=== PATIENT | female | born 1985 | race African-American/Black ===

== ENCOUNTER 2017-04-21 15:44 | Emergency (ER) | payer SELFPAY ==
[~2017-04-21] VITALS: Ht 162.6 cm; Wt 72.6 kg
[2017-04-21 16:01] VITALS: BP 112/67
[2017-04-21 18:47] LABS: Urine Bilirubin Negative (Negative); Urine Blood Negative /uL (Negative); Urine Color Yellow (Yellow); Urine Glucose Normal (Normal); Urine Ketone Negative (Negative); Urine Mucus FEW (None Seen); Urine Nitrite Negative (Negative); Urine RBC <1 /hpf (0 - 4); Urine Squamous Epithelial Cell FEW /hpf (<5); Urine Urobilinogen Normal (Negative)
== END 2017-04-21 19:31 | disposition home or self-care (01) ==
LOC: ER 15:47
DX: O26.891 Other specified pregnancy related conditions, first trimester (principal); M54.9 Dorsalgia, unspecified; R10.13 Epigastric pain; Z3A.13 13 weeks gestation of pregnancy
CPT/HCPCS: 76801; 81001; 81025

== ENCOUNTER 2020-11-03 16:39 | Emergency (ER) | payer MEDICAID ==
[~2020-11-03] VITALS: Ht 162.6 cm; Wt 72.1 kg
[2020-11-03 17:21] LABS: Basophils # (auto) 0 10 ^3/uL (0-0.2); Basophils % (auto) 0.4 % (0.0-2.0); Eosinophils # (auto) 0 10 ^3/uL (0-0.8); Eosinophils % (auto) 0.4 % (0.0-7.0); Hematocrit 37.6 % (36.0-46.0); Hemoglobin 12.3 g/dL (12.2-16.2); Lymphocytes # (auto) 2.1 10 ^3/uL (0.4-5.4); Lymphocytes % (auto) 34.4 % (10.0-50.0); Mean Corpuscular Hemoglobin 29.3 pg (28.0-32.0); Mean Corpuscular Hgb Conc. 32.6 g/dL (32.0-36.0); Mean Corpuscular Volume 89.9 fL (80.0-100.0); Monocytes # (auto) 0.6 10 ^3/uL (0-1.3); Monocytes % (auto) 9.6 % (0.0-12.0); Neutrophils # (auto) 3.4 10 ^3/uL (1.6-8.6); Neutrophils % (auto) 55.2 % (37.0-80.0); Nucleated Red Blood Cells % 0.1 %; Platelet Count (auto) 284 10^3/uL (140-450); Red Blood Cells 4.18 10^6/uL (4.0-5.20); White Blood Cell 6.2 10^3/uL (4.4-10.8)
[2020-11-03 17:24] LABS: Urine Amorphous Crystal FEW /hpf (None Seen); Urine Bacteria FEW /hpf (None Seen); Urine Blood Negative /uL (Negative); Urine Mucus FEW (None Seen); Urine WBC 2 /hpf (0 - 5)
[2020-11-03 18:54] VITALS: BP 95/50
== END 2020-11-03 20:35 | disposition home or self-care (01) ==
LOC: ER 16:39
DX: O26.891 Other specified pregnancy related conditions, first trimester (principal); R10.31 Right lower quadrant pain; Z3A.09 9 weeks gestation of pregnancy
CPT/HCPCS: 36415; 76801; 81001; 84702; 85025